=== PATIENT | female | born 1940 | race Caucasian/White ===

== ENCOUNTER 2020-02-15 09:20 | Outpatient (CLI) | payer OTHER ==
[~2020-02-15 09:20] MED LIST: LIPITOR20 MG
== END 2020-02-15 09:24 | disposition home or self-care (01) ==
LOC: SONOGRAMA 09:20
PROVIDERS: ATTEND Pathology Anatomic Pathology & Clinical Pathology
DX: E04.1 Nontoxic single thyroid nodule (principal)